=== PATIENT | male | born 1995 | race African-American/Black ===

== ENCOUNTER 2017-06-20 14:54 | Emergency (ER) | payer SELFPAY ==
[~2017-06-20] VITALS: Ht 177.8 cm; Wt 73.9 kg
[2017-06-20 15:15] VITALS: BP 142/69
[2017-06-20 16:05] LABS: SOURCE URINE
[2017-06-20] MEDS ORDERED: ZOVIRAX800 M1 PO (16:50)
[2017-06-21 13:33] LABS: CHLAMYDIA TRACHOMATIS POSITIVE; NEISSERIA GONORRHOEAE NEGATIVE
== END 2017-06-20 18:00 | disposition home or self-care (01) ==
LOC: EME 14:54
PROVIDERS: Nurse Practitioner Family
DX: B00.9 Herpesviral infection, unspecified (principal); Z20.2 Contact with and (suspected) exposure to infections with a predominantly sexual mode of transmission
CPT/HCPCS: 87491; 87591; 99281; 99284; J0696